=== PATIENT | female | born 1975 | race Caucasian/White ===

== ENCOUNTER → 2023-11-18 08:16 | Outpatient (REF) | payer BC, SELFPAY | LOC: RAD 08:16 | PROVIDERS: ATTENDING PHYSICIAN Nurse Practitioner Adult Health | DX: M79.604 Pain in right leg (principal) | CPT/HCPCS: 93971 ==

== ENCOUNTER → 2024-06-20 10:29 | Outpatient (REF) | payer BC, SELFPAY | LOC: WDC 10:29 | PROVIDERS: ATTENDING PHYSICIAN Nurse Practitioner Adult Health | DX: Z12.31 Encounter for screening mammogram for malignant neoplasm of breast (principal) | CPT/HCPCS: 77063; 77067 ==